=== PATIENT | female | born 1990 | race Two or more races ===

== ENCOUNTER 2018-04-26 14:42 | Inpatient (IN) | payer OTHER ==
[~2018-04-26] VITALS: Ht 170.2 cm; Wt 87.5 kg
[2018-05-17] MEDS ORDERED: OBSTETRIX DHA1 EACH PO (06:46)
== END 2018-05-20 10:12 | disposition home or self-care (01) | DRG 787 ==
LOC: OB/GYN 05-15 13:15 → LDR 05-17 05:11 → OB/GYN 05-17 05:32 → LDR 05-17 08:19 → OB/GYN 05-17 20:53
PROVIDERS: ADMIT Obstetrics & Gynecology
PROC: 4A1HXCZ Monitoring of Products of Conception, Cardiac Rate, External Approach (ICD-10-PCS; 2018-05-17)
PROC: 10D00Z1 Extraction of Products of Conception, Low, Open Approach (ICD-10-PCS; principal; 2018-05-17 14:00)
DX: O76 Abnormality in fetal heart rate and rhythm complicating labor and delivery (principal); O99.113 Other diseases of the blood and blood-forming organs and certain disorders involving the immune mechanism complicating pregnancy, third trimester; D68.0 Von Willebrand disease; Z3A.40 40 weeks gestation of pregnancy; Z37.0 Single live birth